=== PATIENT | male | born 1995 | race Caucasian/White ===

== ENCOUNTER 2020-03-19 15:27 | Emergency (ER) | payer OTHER, SELFPAY ==
[2020-03-19 15:40] VITALS: BP 135/63; PULSE 90; RESP 16; TEMP 37.3; O2SAT 98
--- NOTE | 2020-03-19 15:42 | ED.GENADULT ---
HPI - General Adult General Chief complaint: Extremity Problem,Nontraumatic Stated complaint: right knee pain Time Seen by Provider: 03/19/20 15:43 Source: patient and RN notes reviewed Mode of arrival: ambulatory Limitations: no limitations History of Present Illness HPI narrative: 24-year-old male presents with complains of right lateral knee pain for 1 day. Ice, Elevation, and Tylenol, last on 03/18/20 with some relief. No known injury. Pain increased today after working ([employer]) with a lot of walking. History of Tendonitis and a Meniscus surgery to RT knee. No radiation of pain. No numbness or tingling, or bleeding. No swelling. No loss of mobility. Exacerbating factor consist of bearing weight, palpation, or manipulation. The patient reports they have not been diagnosed with COVID-19. The patient reports they are not waiting for the results of a COVID-19 lab test. The patient reports they do not have fever, chills, weakness, fatigue, myalgia, or facial swelling. The patient reports they do not have a new or worsening cough or shortness of breath. Denies chest pain. The patient reports they do not have any rhinorrhea, congestion, sore throat, nausea, vomiting, abdominal pain, and diarrhea. Tolerating po intake well. Denies recent traveling. Denies concerns for COVID-19 or exposures been home since [id number] order except for essential household needs, working, and return home. At this time, patient is not suspected of having COVID-19. Some parts of this dictation were generated by voice recognition software and may contain typographical and/or grammatical inaccuracies. Related Data Allergies Allergy/AdvReac Type Severity Reaction Status Date / Time aspartame Allergy Seizure Verified 03/19/20 15:43 Review of Systems Review of Systems: Narrative: CONSTITUTIONAL: Denies fever, chills, sweats. EYES: Denies visual changes, redness, discharge. ENT: Denies rhinorrhea, congestion, sore throat, otalgia. CARDIOVASCULAR: Denies chest pain, palpitations, edema. RESPIRATORY: Denies dyspnea, wheezing, cough. GASTROINTESTINAL: Denies abdominal pain, nausea, vomiting, diarrhea. GENITOURINARY: Denies dysuria, hematuria, abnormal discharge. SKIN: Denies rash or itching. MUSCULOSKELETAL: Denies acute back pain or myalgia. Complains of Right lateral knee pain. NEUROLOGIC: Denies numbness, or focal weakness. PSYCHIATRIC: Denies anxiety or depression. All other systems reviewed & are unremarkable except as noted in HPI and below. [facility] Past Medical History Medical History (Updated 03/19/20 @ 16:07 by KEV Mckeon) Right knee meniscal tear Tendonitis of knee, right Surgical History Surgical History (Updated 03/19/20 @ 15:56 by KEV Mckeon) History of knee surgery Meniscus surgery Family History Family History (Updated 03/19/20 @ 15:57 by KEV Mckeon) Other Adopted Social History Social History (Updated 03/19/20 @ 15:57 by KEV Mckeon) Smoking status: Former smoker Tobacco type: cigarettes Second hand tobacco smoke exposure: No Alcohol intake: current Substance use: never Living arrangements: with family Occupation/Education: occupation Gender identity (if verbalized by the patient): Male Comments At time of signature, agree with nurse past medical, surgical, social, and family history. There is no relevant family history pertinent to the presenting complaint. Exam Narrative: Exam Narrative: GENERAL: This is a well-nourished, well-developed patient, in no apparent distress. Talks in full sentences and ambulates with RT antalgic gait without dyspnea. HEAD: normocephalic, atraumatic. EYES: PERRL. Sclera clear/white. Vision is grossly intact. CARDIOVASCULAR: Regular rate and rhythm without murmurs, gallops, or rubs. RESPIRATORY: Clear to auscultation. Breath sounds equal bilaterally. No wheezes, rales, or rhonchi. GASTROINTESTINAL: Abdomen soft,
[2020-03-19] MEDS: KETOROLAC (*BKC) 60 MG/2 ML VIAL IM (15:55)
== END 2020-03-19 16:19 | disposition home or self-care (01) ==
PROVIDERS: Emergency Provider Nurse Practitioner Family
DX: S86.911A Strain of unspecified muscle(s) and tendon(s) at lower leg level, right leg, initial encounter (principal); F17.210 Nicotine dependence, cigarettes, uncomplicated; X58.XXXA Exposure to other specified factors, initial encounter
CPT/HCPCS: 96372; 99203; G0463; J1885

== ENCOUNTER 2022-04-28 18:40 | Emergency (ER) | payer OTHER, SELFPAY ==
--- NOTE | ~2022-04-28 | XR_ITS ---
XR chest 2V DATE: 04/28/2022 19:08 INDICATION: Chest pain, left arm numbness today TECHNIQUE: PA and lateral views COMPARISON: None FINDINGS: No pulmonary infiltrate or consolidation, pleural effusion or pulmonary vascular congestion or pneumothorax. Normal heart size. No hilar or mediastinal enlargement. Included skeletal structures are unremarkable . IMPRESSION: Negative Reviewed, dictated and finalized at location B. IMPRESSION: Negative
--- NOTE | 2022-04-28 18:43 | ECG_ITS ---
Measurements Intervals [place] Rate: 85 P: 46 NV: 137 QRS: 64 QRSD: 84 T: 46 QT: 334 QTc: 397 Interpretive Statements SINUS RHYTHM WITH SINUS ARRHYTHMIA NO PREVIOUS ECG AVAILABLE FOR COMPARISON Electronically Signed On 04-28-2022 19:44:53 CDT by Sneha Whitlock M.D.
[2022-04-28 18:52] VITALS: BP 141/78; PULSE 90; RESP 16; TEMP 37.7; O2SAT 77
[2022-04-28 19:09] LABS: Basophils Percent Auto 0.5 % (0.2-1.2); Eosinophils Percent Auto 0.4 % (0-4.4); Hematocrit 40.7 % (42.0-52.0); Hemoglobin 13.8 g/dL (14.0-18.0); Immature Granulocyte Absolute 0.02 K/mm3 (0.00-0.031); Immature Granulocyte Percent A 0.3 % (0-0.5); Lymphocytes Absolute Auto 3.37 K/mm3 (0.9-3.2); Lymphocytes Percent Auto 42.4 % (18.3-44.2); Mean Corpuscular HGB Conc 33.9 g/dl (32-36); Mean Corpuscular Hemoglobin 29.3 pg (26-34); Mean Corpuscular Volume 86.4 fl (80-100); Mean Platelet Volume 9.3 fl (7.4-10.4); Monocytes Absolute Auto 0.9 K/mm3 (0.1-0.6); Monocytes Percent Auto 10.8 % (2.6-8.5); Neutrophils Absolute Auto 3.6 K/mm3 (1.3-6.7); Neutrophils Percent Auto 45.6 % (45.5-73.1); Platelet Count Result 275 k/mm3 (150-375); Red Blood Count 4.71 M/mm3 (4.6-6.20); Red Cell Distribution Width 12.3 % (11.5-14.5)
[2022-04-28 19:19] LABS: Alanine Aminotransferase 20 U/L (6-50); Albumin Level 5.2 g/dL (3.5-5.1); Alkaline Phosphatase 79 U/L (38-126); Anion Gap 9 mmol/L (8-16); Aspartate Amino Transferase 30 U/L (17-59); Bilirubin,Total 0.5 mg/dL (0.2-1.3); Blood Urea Nitrogen 12 mg/dL (9-20); Calcium 9.7 mg/dL (8.4-10.2); Carbon Dioxide 25 mmol/L (22-30); Chloride 107 mmol/L (98-107); Estimated CRCL calculation 110 ml/min; Estimated Glomerular Filt Rate > 60; Glucose 105 mg/dL (65-110); Lipase 116 U/L (23-300); Potassium 3.6 mmol/L (3.4-5.0); Sodium 141 mmol/L (137-145)
[2022-04-28 19:22] LABS: INR 1.2; Prothrombin Time 14.3 Seconds (11.1-14.7)
[2022-04-28 19:24] LABS: Partial Thromboplastin Time 29.5 SECONDS (22.3-36.8)
[2022-04-28 19:31] LABS: Troponin I < 0.012 ng/mL (0.000-0.034)
[2022-04-28 20:24] VITALS: PULSE 72; RESP 18; O2SAT 99
--- NOTE | 2022-04-28 20:27 | ED.GENADULT ---
HPI - General Adult General Chief complaint: Chest Pain Stated complaint: SOB, L ARM NUMBNESS,CHEST PAIN Time Seen by Provider: 04/28/22 20:16 History of Present Illness HPI narrative: 26-year-old male with no significant past medical history presenting to the emergency department for evaluation of left-sided chest pain with associated shortness of breath. Patient states that approximately 4 PM from work when he felt onset of left-sided chest pain, some numbness to his left arm with some associated shortness of breath. Patient states since the symptoms began that he has begun to feel improved. Patient states the chest pain has resolved and he has minimal symptoms to his left arm. Patient states he does still have the sensation of difficulty catching his breath. Patient denies any past medical history of PE or DVT. Patient denies any previous personal cardiac history. Patient denies any recent long car rides or plane flights. Patient is not vaccinated against COVID but denies any COVID exposure. Patient denies any associated fevers nausea or vomiting. Patient is relatively active and fit. Patient denies any exertional chest pain with normal daily activity. Related Data Allergies Allergy/AdvReac Type Severity Reaction Status Date / Time aspartame Allergy Seizure Verified 03/19/20 15:43 Review of Systems Review of Systems: CONSTITUTIONAL: Denies fever, chills, or sweats. EYES: Denies visual changes, redness, or discharge. ENT: Denies rhinorrhea, congestion, sore throat, or otalgia. CARDIOVASCULAR: Left-sided chest pain but denied any associated heart palpitations, see HPI RESPIRATORY: Patient did have some cough this morning and does have some associated shortness of breath. No current cough. See HPI GASTROINTESTINAL: Denies abdominal pain, nausea, vomiting, or diarrhea. GENITOURINARY: Denies dysuria or hematuria. SKIN: Denies rash or itching. MUSCULOSKELETAL: Denies back pain, joint pain, or myalgia. NEUROLOGIC: Denies headache, numbness, or weakness. [facility] Past Medical History Medical History (Updated 04/29/22 @ 00:00 by Dilan Dapam) Right knee meniscal tear Tendonitis of knee, right Surgical History Surgical History (Updated 03/19/20 @ 15:56 by KEV Mckeon) History of knee surgery Meniscus surgery Family History Family History (Updated 03/19/20 @ 16:22 by KEV Mckeon) Other Adopted Social History Social History (Updated 03/19/20 @ 15:57 by KEV Mckeon) Smoking status: Former smoker Tobacco type: cigarettes Second hand tobacco smoke exposure: No Alcohol intake: current Substance use: never Gender identity (if verbalized by the patient): Male Exam Narrative: APPEARANCE: Well appearing, no pain, no distress, well-nourished. HEAD: normocephalic, atraumatic. EYES: PERRLA/EOMI, conjunctivae clear. NOSE: Normal no drainage THROAT: Pharynx clear, no exudate. NECK: Supple. No adenopathy, no masses. RESPIRATORY: Airway patent, respirations nonlabored. Clear to auscultation bilaterally, no rales, rhonchi, wheezing. CARDIOVASCULAR: Regular rate and rhythm without murmurs rubs or gallops. ABDOMINAL: Soft, nontender, nondistended, normal bowel sounds MUSCULOSKELETAL: Moves all extremities. Strength/ROM intact, No edema, No calf tenderness. NEURO: Alert. Cranial nerves II through XII intact. Grossly intact SKIN: Warm, dry. Normal Color Course Course Emergency Course: EKG showed normal sinus rhythm. Chest x-ray was read as negative. Patient was COVID-negative. Patient's serial troponins were negative. Patient had no elevated D-dimer. Patient does feel improved after treatment. Vital Signs Vital signs: Vital Signs Temperature 99.9 F H 04/28/22 18:52 Pulse Rate 90 04/28/22 18:52 Respiratory Rate 16 04/28/22 18:52 Blood Pressure 141/78 H 04/28/22 18:52 Pulse Oximetry 77 L 04/28/22 18:52 Oxygen Delivery Room Air 04/28/22 18:52
[2022-04-28] MEDS: ASPIRIN 81 MG CHEWABLE TABLET 324 MG PO (20:48)
[2022-04-28] MEDS: SODIUM CHLORIDE 0.9% IV 1,000 ML 999 ML IV CONT (20:48)
[2022-04-28 21:20] VITALS: O2SAT 100
[2022-04-28 21:43] LABS: D Dimer < 0.27 ug/mL (<0.48)
[2022-04-28 21:54] VITALS: BP 121/69; PULSE 58; RESP 16; O2SAT 100
[2022-04-28 22:06] LABS: Troponin I < 0.012 ng/mL (0.000-0.034)
[2022-04-28 22:21] LABS: SARS-CoV-2 RNA PCR Negative
[2022-04-28 22:49] VITALS: BP 112/68; PULSE 56; RESP 20; O2SAT 98
== END 2022-04-28 22:50 | disposition home or self-care (01) ==
PROVIDERS: Emergency Medicine; Emergency Provider Emergency Medicine
DX: R07.89 Other chest pain (principal); Z28.310 Unvaccinated for COVID-19; Z87.891 Personal history of nicotine dependence
CPT/HCPCS: 36415; 71046; 80053; 83690; 84484; 85025; 85380; 85610; 85730; 93005; 96360; 99284; A9270; C9803; J7030; U0003; U0005